=== PATIENT | male | born 1980 | race African-American/Black ===

== ENCOUNTER 2018-05-25 23:42 | Observation (INO) | payer OTHER ==
[2018-05-26 01:27] LABS: INR 0.96 (0.82-1.09); PROTHROMBIN TIME (PATIENT) 10.9 SEC (9.7-13.0)
--- NOTE | 2018-05-26 01:28 | PDOC ---
History of Present Illness - General History Source: Patient, Family, Old Records Exam Limitations: No Limitations - History of Present Illness Initial Comments: 05/26/18 01:34 The patient is a 37 year old male presenting with his family, with a significant past medical history of chronic arm pain, who presents to the ED complaining of headache and right shoulder pain after a fall today. He reports that earlier today he fell and hit his head, which caused him to lose consciousness. He notes that he has been drinking alcohol all day and using the drug PCP. The patient was in the ED earlier today to get evaluated but left before being evaluated, now hes back for the same. The family is concerned that the patient may have a concussion as they are noticing that he has slurred speech. The patient denies chest pain, shortness of breath. Denies fever, chills, nausea , vomiting, diarrhea or constipation. Allergies: None Past surgical history: Hernia repair with mesh. Left lower extremity surgery ( broken bone) Social History: Alcohol and drug use noted <Ian Becerra - Last Filed: 05/26/18 01:34> <Monet Hong - Last Filed: 05/26/18 02:03> - General Chief Complaint: Head/Neck problem Stated Complaint: FALL Time Seen by Provider: 05/26/18 00:29 Past History <Ian Becerra - Last Filed: 05/26/18 01:34> - Suicide/Smoking/Psychosocial Hx Smoking History: Current every day smoker Number of Cigarettes Smoked Daily: 2 Information on smoking cessation initiated: No Hx Alcohol Use: Yes (drinks everyday- beer) Drug/Substance Use Hx: No <Monet Hong - Last Filed: 05/26/18 02:03> - Past Medical History Allergies/Adverse Reactions: Allergies Allergy/AdvReac Type Severity Reaction Status Date / Time No Known Allergies Allergy Verified 05/26/18 00:55 Review of Systems - Review of Systems Able to Perform ROS?: Yes Comments:: 05/26/18 01:34 GENERAL/CONSTITUTIONAL: No fever or chills. No weakness. HEAD, EYES, EARS, NOSE AND THROAT: No change in vision. No ear pain or discharge. No sore throat. GASTROINTESTINAL: No nausea, vomiting, diarrhea or constipation. GENITOURINARY: No dysuria, frequency, or change in urination. CARDIOVASCULAR: No chest pain or shortness of breath. RESPIRATORY: No cough, wheezing, or hemoptysis. MUSCULOSKELETAL: (+) Right shoulder pain. No neck or back pain. SKIN: No rash NEUROLOGIC: (+) Headache, loss of consciousness, slurred speech. No vertigo, change in strength/sensation. ENDOCRINE: No increased thirst. No abnormal weight change. HEMATOLOGIC/LYMPHATIC: No anemia, easy bleeding, or history of blood clots. ALLERGIC/IMMUNOLOGIC: No hives or skin allergy. <Ian Becerra - Last Filed: 05/26/18 01:34> *Physical Exam - Vital Signs Last Vital Signs Temp Pulse Resp BP Pulse Ox 98.5 F 85 19 155/77 100 05/25/18 23:48 05/25/18 23:48 05/25/18 23:48 05/25/18 23:48 05/25/18 23:48 - Physical Exam Comments: 05/26/18 01:34 Constitutional: Awake, alert, oriented. No acute distress. Head: Normocephalic. Atraumatic Eyes: PERRL. EOMI. Conjunctivae are not pale. ENT: Mucous membranes are moist and intact. Posterior pharynx without exudates or erythema. Uvula midline. Neck: Supple. Full ROM. No lymphadenopathy. Cardiovascular: Regular rate. Regular rhythm. S1, S2 regular. Distal pulses are 2+ and symmetric. Pulmonary/Chest: No evidence of respiratory distress. Clear to auscultation bilaterally No wheezing, rales or rhonchi. Abdominal: Soft and non-distended. There is no tenderness. No rebound, guarding or rigidity. No organomegaly. No palpable masses. Good bowel sounds. Back: No CVA tenderness. Musculoskeletal: (+) Right shoulder pain but full range of motion with no pain. No edema. No cyanosis. No clubbing. Full range of motion in all extremities. Nocalf tenderness. Radial/pedal pulses are intact and 2+ bilaterally Skin: Skin is warm and dry. No petechiae. No purpura. Neurological: Alert and oriented to person, place, and time. Cranial nerves II -XII are grossly intact. (+) Slurred speech. Strength is grossly symmetric. No sensory deficits. Psychiatric: Good eye contact. Normal interaction, affect and behavior. <Ian Becerra - Last Filed: 05/26/18 01:34> - Vital Signs Last Vital Signs Temp Pulse Resp BP Pulse Ox 98.5 F 85 19 155/77 100 05/25/18 23:48 05/25/18 23:48 05/25/18 23:48 05/25/18 23:48 05/25/18 23:48 <Monet Hong - Last Filed: 05/26/18 02:03> ED Treatment Course - LABORATORY CBC & Chemistry Diagram: 05/26/18 01:00 <Ian Becerra - Last Filed: 05/26/18 01:34> - LABORATORY CBC & Chemistry Diagram: 05/26/18 01:00 - RADIOLOGY Radiology Studies Ordered: Category Date Time Status CERVICAL SPINE CT W/O CONTR [CT] Stat CT Scan 05/26/18 00:[address] WITHOUT CONTRAST [CT] Stat CT Scan 05/26/18 00:39 Ordered CHEST X-RAY PORTABLE* [RAD] Stat Radiology 05/26/18 00:40 Taken <Monet Hong - Last Filed: 05/26/18 02:03> Medical Decision Making - Medical Decision Making 05/26/18 01:25 a/p: 37yo male with etoh use and pcp use today with a syncopal episode -came to the ED earlier today via ambulance, but walked out without being eval -went back to continue to drink -family represents for further eval, states more lethargic and concern for poss concussion -pt awake, appears altered from PCP use -moving all extremities -c/o R lateral neck pain, no midline pain, c/o headache - neuro intact, c/o R shoulder pain -small abrasion to R elbow -will obtain ct head/c spine -labs, etoh level -ekg, cxr, shoulder and elbow xray 05/26/18 01:30 cxr without acute findings pt fully able to range the shoulder pt is apoor historian family at the bedside were not with the patient when he syncopized earlier - pt states his son was with him 05/26/18 01:57 05/26/18 02:02 pt with a syncopal episode pt will be signed out to the oncoming ed physician pending labs, imaging, and further eval <Monet Hong - Last Filed: 05/26/18 02:03> *DC/Admit/Observation/Transfer - Attestations Scribe Attestion: 05/26/18 01:34 Documentation prepared by Ian Becerra, acting as medical videographer for Monet Hong DO <Ian Becerra - Last Filed: 05/26/18 01:34> - Attestations Physician Attestion: 05/26/18 02:03 I, Dr. Monet Hong, DO, attest that this document has been prepared under my direction and personally reviewed by me in its entirety. I further attest, that it accurately reflects all work, treatment, procedures and medical decision -making performed by me. <Monet Hong - Last Filed: 05/26/18 02:03> Diagnosis at time of Disposition: Syncope - Discharge Dispostion Condition at time of disposition: Fair - Referrals Referrals: Yo Mcgregor MD [Primary Care Provider] - - Patient Instructions - Post Discharge Activity
[2018-05-26 01:38] LABS: ALBUMIN 3.6 g/dl (3.4-5.0); ANION GAP 11 (8-16); BILIRUBIN,TOTAL 0.7 mg/dL (0.2-1.0); BLOOD UREA NITROGEN 12 mg/dL (7-18); CALCIUM 8.8 mg/dL (8.5-10.1); CHLORIDE 104 mmol/L (98-107); CO2 25 mmol/L (21-32); CREATININE 0.9 mg/dL (0.7-1.3); GLUCOSE,RANDOM 87 mg/dL (74-106); POTASSIUM 3.8 mmol/L (3.5-5.1); SGOT/AST 33 U/L (15-37); SGPT/ALT 23 U/L (12-78); SODIUM 140 mmol/L (136-145); TOT PROT 8.5 g/dl (6.4-8.2)
[2018-05-26 01:40] LABS: ALK PHOS 93 U/L (45-117)
[2018-05-26 02:51] LABS: BASO % 0.9 % (0-2.0); EOS % 1.6 % (0-4.5); HEMATOCRIT 47.7 % (35.4-49); HEMOGLOBIN 15.9 GM/dL (11.7-16.9); LYMPH % 31.2 % (8-40); MCH 31.2 pg (25.7-33.7); MCHC 33.3 g/dl (32.0-35.9); MEAN CELL VOLUME 93.9 fl (80-96); MEAN PLT VOLUME 7.5 fl (7.5-11.1); MONO % 13.9 % (3.8-10.2); NEUT % 52.4 % (42.8-82.8); PLATELET COUNT 202 K/MM3 (134-434); RBC 5.09 M/mm3 (4.00-5.60); RDW 14.3 % (11.9-15.9); WHITE BLOOD COUNT 5.4 K/mm3 (4.0-10.0)
[2018-05-26 03:36] LABS: URINE APPEARANCE CLEAR; URINE BILIRUBIN NEGATIVE (<2.0 mg/dL); URINE COLOR LTYELLOW; URINE GLUCOSE (UA) NEGATIVE (NEGATIVE); URINE KETONE TRACE (NEGATIVE); URINE LEUK ESTERASE NEGATIVE (NEGATIVE); URINE NITRITE NEGATIVE (NEGATIVE); URINE PROTEIN NEGATIVE (NEGATIVE); URINE UROBILINOGEN NEGATIVE mg/dL (0.2-1.0)
[2018-05-26 03:49] LABS: METHADONE, UR NEGATIVE ng/ml (CUTOFF=300); OPIATES, URI NEGATIVE ng/ml (CUTOFF=300); URINE AMPHETAMINES NEGATIVE ng/ml (CUTOFF=500); URINE BARBITURATES NEGATIVE ng/ml (CUTOFF=200); URINE BENZODIAZEPINES NEGATIVE ng/ml (CUTOFF=200)
[2018-05-26 03:52] LABS: COCAINE, UR POSITIVE ng/ml (CUTOFF=300)
[2018-05-26 03:53] LABS: PHENCYCLIDINE,URINE POSITIVE ng/ml (CUTOFF=25)
--- NOTE | 2018-05-26 03:56 | PDOC ---
*Physical Exam - Vital Signs Last Vital Signs Temp Pulse Resp BP Pulse Ox 98.5 F 85 19 155/77 100 05/25/18 23:48 05/25/18 23:48 05/25/18 23:48 05/25/18 23:48 05/25/18 23:48 ED Treatment Course - LABORATORY CBC & Chemistry Diagram: 05/26/18 01:00 05/26/18 01:00 - ADDITIONAL ORDERS Additional order review: Laboratory Results 05/26/18 05/26/18 05/26/18 03:21 03:21 01:00 PT with INR INR Sodium Potassium Chloride Carbon Dioxide Anion Gap BUN Creatinine Creat Clearance w eGFR Random Glucose Calcium Magnesium Total Bilirubin AST ALT Alkaline Phosphatase Creatine Kinase Troponin I Total Protein Albumin Urine Color Ltyellow Urine Appearance Clear Urine pH 5.0 Ur Specific [place] 1.011 Urine Protein Negative Urine Glucose (UA) Negative Urine Ketones Trace H Urine Blood Negative Urine Nitrite Negative Urine Bilirubin Negative Urine Urobilinogen Negative Ur Leukocyte Esterase Negative Opiates Screen Negative Methadone Screen Negative Barbiturate Screen Negative Phencyclidine Screen Positive Ur Amphetamines Screen Negative MDMA (Ecstasy) Screen Negative Benzodiazepines Screen Negative Cocaine Screen Positive U Marijuana (THC) Screen Negative Alcohol, Quantitative < 5.0 05/26/18 05/26/18 01:00 01:00 PT with INR 10.90 INR 0.96 Sodium 140 Potassium 3.8 Chloride 104 Carbon Dioxide 25 Anion Gap 11 BUN 12 Creatinine 0.9 Creat Clearance w eGFR > 60 Random Glucose 87 Calcium 8.8 Magnesium 2.0 Total Bilirubin 0.7 AST 33 ALT 23 Alkaline Phosphatase 93 Creatine Kinase 324 H Troponin I < 0.02 Total Protein 8.5 H Albumin 3.6 Urine Color Urine Appearance Urine pH Ur Specific [place] Urine Protein Urine Glucose (UA) Urine Ketones Urine Blood Urine Nitrite Urine Bilirubin Urine Urobilinogen Ur Leukocyte Esterase Opiates Screen Methadone Screen Barbiturate Screen Phencyclidine Screen Ur Amphetamines Screen MDMA (Ecstasy) Screen Benzodiazepines Screen Cocaine Screen U Marijuana (THC) Screen Alcohol, Quantitative 05/26/18 01:00 RBC 5.09 MCV 93.9 MCHC 33.3 RDW 14.3 MPV 7.5 Neutrophils % 52.4 Lymphocytes % 31.2 Monocytes % 13.9 H Eosinophils % 1.6 Basophils % 0.9 *DC/Admit/Observation/Transfer Diagnosis at time of Disposition: Syncope - Discharge Dispostion Condition at time of disposition: Stable Decision to Admit order: Yes - Referrals Referrals: Yo Mcgregor MD [Primary Care Provider] - - Patient Instructions - Post Discharge Activity
[2018-05-26] MEDS ORDERED: chlordiazePOXIDE HCL 25 MG CAPSULE PO PRN (04:44)
--- NOTE | 2018-05-26 04:45 | HP ---
CHIEF COMPLAINT: SYNCOPE PCP: Meche HISTORY OF PRESENT ILLNESS: This is a 37 year old male with a past medical history of chronic right shoulder and left ankle pain who presented to the ED after an apparant syncopal episode. He states that he was outside at a park talking to his son and then he doesn't remember anything until much later. He reports that he was upset prior to this episode and was doing PCP and drinking alcohol. He reports that he sometimes gets a fullness in his head and thinks he may have vertigo. Pt denies any overt headache or dizziness, denies palpitations, chest pain, SOB. ER course was notable for: (1) CT head without acute findings (2) xrays without acute findings (3) troponin negative Recent Travel: pt denies PAST MEDICAL HISTORY: chronic right shoulder pain and left ankle pain PAST SURGICAL HISTORY: ORIF L ankle umbilical hernia repair with mesh Social History: Smokin/2 PPD Alcohol: daily use, drinks beer, unwilling to quantify use, reports he does get shaky sometimes Drugs: PCP, denies cocaine use but utox + for same Family History: mother age 37, lupus, ETOH father alive with HTN, vertigo brother alive and well Allergies No Known Allergies Allergy (Verified 05/26/18 00:55) HOME MEDICATIONS: denies taking any routine medications REVIEW OF SYSTEMS CONSTITUTIONAL: Absent: fever, chills, diaphoresis, generalized weakness, malaise, loss of appetite, weight change HEENT: Absent: rhinorrhea, nasal congestion, throat pain, throat swelling, difficulty swallowing, mouth swelling, ear pain, eye pain, visual changes CARDIOVASCULAR: Present: syncope Absent: chest pain, palpitations, irregular heart rate, lightheadedness, peripheral edema RESPIRATORY: Absent: cough, shortness of breath, dyspnea with exertion, orthopnea, wheezing, stridor, hemoptysis GASTROINTESTINAL: Absent: abdominal pain, abdominal distension, nausea, vomiting, diarrhea, constipation, melena, hematochezia GENITOURINARY: Absent: dysuria, frequency, urgency, hesitancy, hematuria, flank pain, genital pain MUSCULOSKELETAL: Absent: myalgia, arthralgia, joint swelling, back pain, neck pain SKIN: Absent: rash, itching, pallor HEMATOLOGIC/IMMUNOLOGIC: Absent: easy bleeding, easy bruising, lymphadenopathy, frequent infections ENDOCRINE: Absent: unexplained weight gain, unexplained weight loss, heat intolerance, cold intolerance NEUROLOGIC: Present: "fullness in head" Absent: headache, focal weakness or paresthesias, dizziness, unsteady gait, seizure, mental status changes, bladder or bowel incontinence PSYCHIATRIC: Absent: anxiety, depression, suicidal or homicidal ideation, hallucinations. PHYSICAL EXAMINATION Vital Signs - 24 hr 3 05/25/18 23:48 Temperature 98.5 F Pulse Rate 85 Respiratory 19 Rate Blood Pressure 155/77 O2 Sat by Pulse 100 Oximetry (%) GENERAL: Awake, alert, and fully oriented, in no acute distress. HEAD: Normal with no signs of trauma. EYES: Pupils equal, round and reactive to light, extraocular movements intact, sclera anicteric, conjunctiva clear. No lid lag. EARS, NOSE, THROAT: Ears normal, nares patent, oropharynx clear without exudates. Moist mucous membranes. NECK: Normal range of motion, supple without lymphadenopathy, JVD, or masses. LUNGS: Breath sounds equal, clear to auscultation bilaterally. No wheezes, and no crackles. No accessory muscle use. HEART: Regular rate and rhythm, normal S1 and S2 without murmur, rub or gallop. ABDOMEN: Soft, nontender, not distended, normoactive bowel sounds, no guarding, no rebound, no masses. No hepatomegaly or splenomegaly. MUSCULOSKELETAL: Normal range of motion at all joints. No bony deformities or tenderness. No CVA tenderness. UPPER EXTREMITIES: 2+ pulses, warm, well-perfused. No cyanosis. No clubbing. No peripheral edema. LOWER EXTREMITIES: 2+ pulses, warm, well-perfused. No calf tenderness. No peripheral edema. NEUROLOGICAL: Cranial nerves II-XII intact. Normal speech. Normal gait. PSYCHIATRIC: Cooperative. Good eye contact. Appropriate mood and affect. SKIN: Warm, dry, normal turgor, no rashes or lesions noted, normal capillary refill. Laboratory Results - last 24 hr 3 05/26/18 05/26/18 05/26/18 01:00 01:00 01:00 WBC 5.4 RBC 5.09 Hgb 15.9 Hct 47.7 MCV 93.9 MCH 31.2 MCHC 33.3 RDW 14.3 Plt Count 202 MPV 7.5 Absolute Neuts (auto) 2.8 Neutrophils % 52.4 Lymphocytes % 31.2 Monocytes % 13.9 H Eosinophils % 1.6 Basophils % 0.9 Nucleated RBC % 0 PT with INR 10.90 INR 0.96 Sodium 140 Potassium 3.8 Chloride 104 Carbon Dioxide 25 Anion Gap 11 BUN 12 Creatinine 0.9 Creat Clearance w eGFR > 60 Random Glucose 87 Calcium 8.8 Magnesium 2.0 Total Bilirubin 0.7 AST 33 ALT 23 Alkaline Phosphatase 93 Creatine Kinase 324 H Troponin I < 0.02 Total Protein 8.5 H Albumin 3.6 Urine Color Urine Appearance Urine pH Ur Specific [place] Urine Protein Urine Glucose (UA) Urine Ketones Urine Blood Urine Nitrite Urine Bilirubin Urine Urobilinogen Ur Leukocyte Esterase Opiates Screen Methadone Screen Barbiturate Screen Phencyclidine Screen Ur Amphetamines Screen MDMA (Ecstasy) Screen Benzodiazepines Screen Cocaine Screen U Marijuana (THC) Screen Alcohol, Quantitative 3 05/26/18 05/26/18 05/26/18 01:00 03:21 03:21 WBC RBC Hgb Hct MCV MCH MCHC RDW Plt Count MPV Absolute Neuts (auto) Neutrophils % Lymphocytes % Monocytes % Eosinophils % Basophils % Nucleated RBC % PT with INR INR Sodium Potassium Chloride Carbon Dioxide Anion Gap BUN Creatinine Creat Clearance w eGFR Random Glucose Calcium Magnesium Total Bilirubin AST ALT Alkaline Phosphatase Creatine Kinase Troponin I Total Protein Albumin Urine Color Ltyellow Urine Appearance Clear Urine pH 5.0 Ur Specific [place] 1.011 Urine Protein Negative Urine Glucose (UA) Negative Urine Ketones Trace H Urine Blood Negative Urine Nitrite Negative Urine Bilirubin Negative Urine Urobilinogen Negative Ur Leukocyte Esterase Negative Opiates Screen Negative Methadone Screen Negative Barbiturate Screen Negative Phencyclidine Screen Positive Ur Amphetamines Screen Negative MDMA (Ecstasy) Screen Negative Benzodiazepines Screen Negative Cocaine Screen Positive U Marijuana (THC) Screen Negative Alcohol, Quantitative < 5.0 ECG normal sinus rhythm vent rate 67, QTC [address] T changes Radiology Reports CT head noncontrast THIS IS A PRELIMINARY REPORT FROM IMAGING ON CALLNo acute brain parenchymal abnormality. No hemorrhage, mass or acute territorial infarct. Posterior and upper scalp contour irregularities, correlate clinically. No skull fracture. Small fluid right maxillary sinus. Visualized mastoid air cells clear. THIS DOCUMENT HAS BEEN ELECTRONICALLY SIGNED Ruthann Donaldson M.D. 05/26/2018 01:[address] C spine THIS IS A PRELIMINARY REPORT FROM IMAGING DIETETIC TECHNICIAN REGISTERED No acute fracture or malalignment. Multilevel spondylosis. Prominent atnerior osteophytes C3-C7, a finding that can be seen with diffuse idiopathic skeletal hyperostosis. Straightening of cervical lordosis, possibly due to positioning or muscle spasm. Enlarged thyroid gland. Minimal emphysematous changes upper lobes. THIS DOCUMENT HAS BEEN ELECTRONICALLY SIGNED Ruthann Donaldson M.D. 05/26/2018 01:57 EST ASSESSMENT/PLAN: 37yM with PMH chronic arm and leg pain, daily ETOH use presented to the ED after a syncopal episode. Syncope - ? due to ETOH/PCP use - will monitor on tele, r/o arrhythmia - trend trops, r/o ischemic event - consider cardio and neuro eval, defer to PCP Alcohol dependence - will start librium detox as pt unable to quantify use to prevent withdrawal. - consider detox eval, defer to PCP DVT PPX - heparin deferred, anticipated LOS <48h FEN - tolerating po - BMP in am - regular diet as tolerated Dispo: pt currently requires further observation for management of his emergent condition. Visit type - Emergency Visit Emergency Visit: Yes ED Registration Date: 05/25/18 Care time: The patient presented to the Emergency Department on the above date and was hospitalized for further evaluation of their emergent condition. - New Patient This patient is new to me today: Yes Date on this admission: 05/26/18 - Critical Care Critical Care patient: Yes Hospitalist Screening - Colonoscopy Questionnaire Colonoscopy Questionnaire: Colonoscopy Questionnaire - Patient: 50 - 75 years old and never had a screening colonoscopy: No History of colon or rectal polyps, or CA: No History of IBD, Crohn's disease or UC: No History of abdominal radiation therapy as a child: No - Relative: 1 with colon or rectal CA, or polyps at age 60 or younger: No Colon or rectal CA diagnosed at age 45 or younger: No Multiple relatives with colon or rectal CA: No - Outcome: Screening Result: Negative Screen
[2018-05-26 07:31] VITALS: BMI 20.5
[2018-05-26 09:58] VITALS: BP 150/90; PULSE 62; TEMP 98
[2018-05-26] MEDS ORDERED: chlordiazePOXIDE HCL 25 MG CAPSULE PO SCH (11:00)
--- NOTE | 2018-05-26 11:11 | DS ---
Physical Examination Vital Signs: Vital Signs Temperature 98 F 05/26/18 09:00 Pulse Rate 62 05/26/18 09:00 Respiratory Rate 14 05/26/18 09:00 Blood Pressure 150/90 05/26/18 09:00 O2 Sat by Pulse Oximetry (%) 96 05/26/18 06:00 Findings/Remarks: POSITIVE PCP/COCAINE ON DETOX, NO ETOH WITHDRAWELS Constitutional: Yes: No Distress Eyes: Yes: WNL HENT: Yes: WNL Neck: Yes: WNL Cardiovascular: Yes: WNL Respiratory: Yes: WNL Gastrointestinal: Yes: WNL ...Rectal Exam: Yes: Other Musculoskeletal: Yes: WNL Extremities: Yes: WNL Edema: No Peripheral Pulses WNL: Yes Integumentary: Yes: WNL Wound/Incision: Yes: Clean/Dry Neurological: Yes: WNL ...Motor Strength: WNL Psychiatric: Yes: WNL Labs: CBC, BMP 05/26/18 01:00 05/26/18 01:00 Discharge Summary Reason For Visit: SNCOPE Current Active Problems Syncope (Acute PCP AND COCAINE POSITIVE ON URINE TOXICOLOGY Procedures: Principal: CT BRAIN/CSPINE XRAYS NO ACUTE CHANGES Hospital Course: TELEMETRY NO ACUTE ALARMS, MONITORED OBSERVATION STATUS, LABS NO ACUTE CHANGES, POSITIVE URINE TOXICOLOGY WITH PCP/COCAINE USE. WILL OFFER [facility] APPOINTMENT BUT PATIENT FEELS HE DOES NOT NEED DETOX/SUBSTANCE ABUSE THERAPY. HE IS NOT ACTIVELY WITHDRAWING FROM ETOH. CAN SEE HIS PMD TODAY FOR SUPPORT AND TREATMENT. APPOINTMENT MADE WITH [facility] [phone] FOR THIS AFTERNOON. 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 Condition: Stable - Instructions Diet, Activity, Other Instructions: SEE YOUR PMD TODAY [address] [facility] EVAL FOR SUBSTANCE ABUSE REGULAR DIET THIAMINE AND FOLIC ACID PER PMD IF NEEDED Referrals: Yo Mcgregor MD [Primary Care Provider] - Disposition: HOME - Home Medications Comprehensive Discharge Medication List: Ambulatory Orders NK [No Known Home Medication] 05/26/18
--- NOTE | 2018-05-26 11:26 | EKG ---
Test Reason : Blood Pressure : / mmHG Vent. Rate : 067 BPM Atrial Rate : 067 BPM P-R Int : 164 ms QRS Dur : 118 ms QT Int : 422 ms P-R-T Axes : 049 007 060 degrees QTc Int : 445 ms NORMAL SINUS RHYTHM NON-SPECIFIC INTRA-VENTRICULAR CONDUCTION DELAY NONSPECIFIC ST ABNORMALITY ABNORMAL ECG NO PREVIOUS ECGS AVAILABLE Confirmed by TIFFANY PERALES MD ([id number]) on 05/26/2018 11:25:40 AM Referred By: Confirmed By:TIFFANY PERALES MD
[2018-05-27] MEDS ORDERED: chlordiazePOXIDE HCL 25 MG CAPSULE PO SCH (11:00)
[2018-05-28] MEDS ORDERED: chlordiazePOXIDE 5 MG CAPSULE PO SCH (11:00)
== END 2018-05-26 11:59 | disposition home or self-care (01) ==
LOC: JER 23:42 → JERBED 05-26 04:41 → UNDOADMOB 05-26 04:41 → INTOOBSV 05-26 04:41 → JERBED 05-26 04:42 → J4W 05-26 06:05 → JERBED 05-26 06:05 → J4W 05-26 06:05
PROVIDERS: ADMIT Internal Medicine; ATTEND Family Medicine
DX: R55 Syncope and collapse (principal); F10.20 Alcohol dependence, uncomplicated; F16.10 Hallucinogen abuse, uncomplicated; F14.10 Cocaine abuse, uncomplicated; F17.210 Nicotine dependence, cigarettes, uncomplicated
CPT/HCPCS: 36415; 70450-TC; 71045-TC-FY; 72125-TC; 73030-TC-RT-FY; 73070-TC-RT-FY; 80053; 80307; 81003; 82550; 82553; 83735; 84484; 85025; 85610; 93005; 93010; 99281-25; G0378